=== PATIENT | male | born 1950 | race African-American/Black ===

== ENCOUNTER 2017-08-30 16:41 | Emergency (ER) | payer OTHER ==
[~2017-08-30] VITALS: Ht 177.8 cm; Wt 132.0 kg
[2017-08-30 16:50] VITALS: BP 168/100
[2017-08-30] MEDS ORDERED: IBUPROFEN 800MG TABLET PO ONE (17:30)
== END 2017-08-30 19:42 | disposition left against medical advice (07) ==
LOC: ER 16:45
DX: M54.2 Cervicalgia (principal); M25.512 Pain in left shoulder; M25.511 Pain in right shoulder; M54.9 Dorsalgia, unspecified; G89.29 Other chronic pain; I10 Essential (primary) hypertension; E11.9 Type 2 diabetes mellitus without complications; E78.00 Pure hypercholesterolemia, unspecified; V89.2XXA Person injured in unspecified motor-vehicle accident, traffic, initial encounter; Y93.9 Activity, unspecified; Y92.410 Unspecified street and highway as the place of occurrence of the external cause
CPT/HCPCS: 99283